=== PATIENT | male | born 1975 | race Caucasian/White ===

== ENCOUNTER 2017-06-18 13:07 | Emergency (ER) | payer OTHER ==
[~2017-06-18] VITALS: Ht 185.4 cm; Wt 93.0 kg
[~2017-06-18 13:07] MED LIST: ATARAX25 MG PO; BACTRIM DS 8001 TA1 PO; CEFADROXIL MON500 MG PO; CLEOCIN HCL150 MG PO; CLINDAMYCIN HC300 MG PO; DAYPRO600 M1 PO; DURICEF500 MG PO; EES400 MG PO; FLEXERIL10 MG PO; HYDROCODONE BIT1 T11 PO; KEFLEX500 MG PO; LIDEX 0.05% CRE15 GM T; NAPROSYN500 MG PO; NEURONTIN300 MG PO; NKHM; NKHM PO; NORFLEX100 MG PO; PERCOCET 325 MG1 TA7 PO; PREDNISONE10 MG PO; PREDNISONE20 M1 PO; PREDNISONE20 MG PO; ROBAXIN750 MG PO; SILVADENE1% TP; SOMA350 MG PO; TOBREX OPHTH S2.5 ML OPH; TRAMADOL HCL50 MG PO; TRIMOX500 MG PO; VICODIN 5/500 505 MG PO; VICODIN ES 7501 TAB PO
== END 2017-06-18 13:49 | disposition home or self-care (01) ==
LOC: ED 13:07
DX: J06.9 Acute upper respiratory infection, unspecified (principal); Z79.899 Other long term (current) drug therapy

== ENCOUNTER 2017-06-22 19:14 | Emergency (ER) | payer OTHER ==
[~2017-06-22] VITALS: Ht 185.4 cm; Wt 95.3 kg
[2017-06-22 20:40] LABS: BASO % 0.2 % (0.0-1.0); EOS # 0.1 10*3/uL (0.0-0.4); EOS % 0.7 % (1.0-4.0); HEMATOCRIT 35.7 % (42.0-52.0); HEMOGLOBIN 12.2 g/dl (14.0-18.0); LYMPH # 1.3 10*3/uL (1.3-4.4); LYMPH % 14.8 % (27.0-41.0); MEAN CORPUSCULAR HGB CONC 34.2 g/dl (33.0-37.0); MEAN PLATELET VOLUME 9.7 fl (9.6-12.3); MONO # 0.5 10*3/uL (0.1-1.0); MONO % 5.2 % (3.0-9.0); NEUT # 7.1 10*3/uL (2.3-7.9); NEUT % 78.9 % (47.0-73.0); PLATELET COUNT AUTOMATED 245 10*3/uL (130-400); RED CELL DISTRI WIDTH 12.9 % (0-14.5)
[2017-06-22] MEDS ORDERED: CLARITIN-D 121 EACH PO (20:46)
[2017-06-22] MEDS ORDERED: AUGMENTIN 875875 MG PO (20:46)
[2017-06-22 20:52] LABS: BUN 8 mg/dl (7-24); CHLORIDE 102 mmol/L (98-107); CREATININE 0.92 mg/dL (0.70-1.30); POTASSIUM 4.1 mmol/L (3.5-5.1); SODIUM 136 mmol/L (136-145)
== END 2017-06-22 20:51 | disposition home or self-care (01) ==
LOC: ED 19:14
PROVIDERS: Emergency Medicine Emergency Medical Services
DX: J32.0 Chronic maxillary sinusitis (principal); Z98.890 Other specified postprocedural states; Z79.899 Other long term (current) drug therapy

== ENCOUNTER 2018-01-28 23:34 | Emergency (ER) | payer OTHER ==
[~2018-01-28] VITALS: Ht 185.4 cm; Wt 97.5 kg
[~2018-01-28 23:34] MED LIST changes: +AUGMENTIN 875875 MG PO; +CLARITIN-D 121 EACH PO
== END 2018-01-28 23:58 | disposition home or self-care (01) ==
LOC: ED 23:34
DX: I83.92 Asymptomatic varicose veins of left lower extremity (principal)

== ENCOUNTER 2018-06-05 14:30 | Emergency (ER) | payer OTHER ==
[2018-06-05] MEDS ORDERED: CLINDAMYCIN HC300 MG PO (14:43)
[2018-06-05] MEDS ORDERED: Motrin,Rufen800 MG PO (14:43)
== END 2018-06-05 14:48 | disposition home or self-care (01) ==
LOC: ED 14:30
DX: K04.7 Periapical abscess without sinus (principal); Z79.2 Long term (current) use of antibiotics; Z79.899 Other long term (current) drug therapy

== ENCOUNTER 2024-07-05 17:10 | Emergency (ER) | payer OTHER ==
[~2024-07-05] VITALS: Ht 182.8 cm; Wt 93.0 kg
[~2024-07-05 17:10] MED LIST changes: +Motrin,Rufen800 MG PO
[2024-07-05] MEDS ORDERED: POLYTRIM 1000010 ML OPH (17:46)
[2024-07-05] MEDS ORDERED: Polymyxin B Sulfate/Trimetho 10 ML BOT OPH ONE (17:50)
== END 2024-07-05 18:44 | disposition home or self-care (01) ==
LOC: ED 17:10
DX: H10.9 Unspecified conjunctivitis (principal); Z98.890 Other specified postprocedural states